=== PATIENT | female | born 1975 | race Caucasian/White ===

== ENCOUNTER 2017-11-09 21:18 | Emergency (ER) | payer BC, OTHER, MEDICAID | END 2017-11-10 00:21 | disposition home or self-care (01) | LOC: FTE 11-10 00:21 | DX: R06.02 Shortness of breath (principal) | CPT/HCPCS: 71045; 99283-25 ==

== ENCOUNTER 2018-12-29 11:28 | Day surgery (SDC) | payer BC ==
[2018-12-29] MEDS ORDERED: DESFLURANE 15 MIN (12:00)
[2018-12-29] MEDS ORDERED: ONDANSETRON 4 MG INJ IV (12:30)
[2018-12-29] MEDS ORDERED: morphine 2 MG INJ IV ×2 (12:30)
[2018-12-29] MEDS ORDERED: DIPHENHYDRAMINE 50 MG INJ IV (12:30)
[2018-12-29] MEDS ORDERED: LABETALOL HCL 20MG INJ IV (12:30)
[2018-12-29] MEDS ORDERED: HYDROmorphONE 1 MG/5 ML IV SYRINGE IV ×3 (12:30)
[2018-12-29] MEDS ORDERED: OXYCODONE/ACETAMINOPHEN (5/325) TAB PO ×2 (12:30)
[2018-12-29] MEDS ORDERED: MEPERIDINE 25 MG INJ IV (12:30)
[2018-12-29] MEDS ORDERED: FENTAnyl 50 MCG/ML VIAL IV ×2 (12:30)
[2018-12-29] MEDS ORDERED: ALBUTEROL 0.083% (NEB) 2.5 MG/3 ML AMP HHN (12:30)
[2018-12-29] MEDS: ACETAMINOPHEN 500 MG TAB PO (12:33)
[2018-12-29 12:43] LABS: ADD MAN DIFF? NO
[2018-12-29] MEDS ORDERED: PROPOFOL 40 ML (12:45)
[2018-12-29] MEDS ORDERED: MIDAZOLAM 1 MG/ML 2 ML INJ (12:45)
[2018-12-29] MEDS ORDERED: CEFAZOLIN 1 GM INJ (12:45)
[2018-12-29] MEDS ORDERED: LIDOCAINE 2% (SDV) 5 ML INJ (12:45)
[2018-12-29] MEDS ORDERED: FENTAnyl 50 MCG/ML VIAL (12:45)
[2018-12-29] MEDS ORDERED: ONDANSETRON 4 MG INJ (12:45)
[2018-12-29] MEDS ORDERED: FAMOTIDINE 20 MG INJ (12:46)
[2018-12-29] MEDS ORDERED: DEXAMETHASONE 4 MG/ML 5 ML INJ (12:46)
[2018-12-29 12:48] LABS: WHITE BLOOD COUNT 5.7 10^3/ul (4.8-10.8)
[2018-12-29 12:48] LABS: BASOPHILS % 0.5 % (0.0-2.0); EOSINOPHILS # 0.2 10^3/ul (0.0-0.5); EOSINOPHILS % 2.8 % (0.0-7.0); HEMATOCRIT 40.9 % (37.0-47.0); HEMOGLOBIN 12.9 g/dl (12.0-16.0); LYMPHOCYTES # 2.1 10^3/ul (0.8-2.9); LYMPHOCYTES % 36.2 % (15.0-51.0); MEAN CORPUSCULAR HEMOGLOBIN 25.4 pg (29.0-33.0); MEAN CORPUSCULAR HGB CONC 31.5 g/dl (32.0-37.0); MEAN CORPUSCULAR VOLUME 80.5 fl (82.0-101.0); MONOCYTE # 0.5 10^3/ul (0.3-0.9); MONOCYTES % 9.2 % (0.0-11.0); NEUTROPHIL # 2.9 10^3/ul (1.6-7.5); NEUTROPHILS % 51.1 % (39.0-77.0); PLATELET COUNT 244 10^3/UL (140-415); RED BLOOD COUNT 5.08 10^6/ul (4.20-5.40); RED CELL DISTRIBUTION WIDTH 13.8 % (11.5-14.5)
[2018-12-29] MEDS ORDERED: STRONG IODINE 14 ML SOLUTION TOP (13:00)
[2018-12-29] MEDS ORDERED: EPHEDrine 25 MG/5 ML SYG (13:52)
[2018-12-29] MEDS ORDERED: PHENYLephrine (100 MCG/ML) 10ML SYG (13:52)
[2018-12-29] MEDS ORDERED: KETOROLAC 30 MG INJ (13:54)
== END 2018-12-29 15:44 | disposition home or self-care (01) ==
LOC: SDS 11:28
DX: N87.0 Mild cervical dysplasia (principal); N72 Inflammatory disease of cervix uteri
CPT/HCPCS: 57522; 84702; 84703; 85025; 86850; 86900; 86901; 88305